=== PATIENT | male | born 1985 | race Caucasian/White ===

== ENCOUNTER 2020-11-15 14:09 | Emergency (ER) | payer BC ==
[2020-11-15] MEDS ORDERED: Alum Hydrox/Mag Hydrox/Simeth 15 ML, Lidocaine 2% 5 ML PO ONE ×4 (14:48→16:41)
[2020-11-15 15:16] LABS: BLOOD UREA NITROGEN,BUN 17 mg/dL (7.0-18.0); CARBON DIOXIDE,CO2 27.8 mmol/L (21.0-32.0); CHLORIDE,CL 102 mmol/L (98-107); GLUCOSE RANDOM 109 mg/dL (74-106); LIPASE 227 U/L (73-393); POTASSIUM,K 3.8 mmol/L (3.5-5.1); SODIUM,NA 139 mmol/L (136-148)
[2020-11-15] MEDS ORDERED: Morphine 4 MG/ML Syringe IVPUSH ONE ×2 (15:56→18:30)
[2020-11-15] MEDS ORDERED: Acetaminophen 500 MG Tab PO ONE (16:40)
[2020-11-15] MEDS ORDERED: Iopamidol 755 MG/ML 500 ML Multipack Bottle IVPUSH ONE (16:40)
--- NOTE | 2020-11-15 17:01 | CT ---
Indication: Epigastric abdominal pain for 1 day. Technique: Contrast enhanced CT abdomen pelvis 100 mL Isovue 370. Comparison: No comparison studies are available Findings: Heart size is normal. No pericardial effusion. Bibasilar atelectasis. Spleen adrenal glands pancreas appears unremarkable. Cholelithiasis. There is a 5 millimeter stone in the mid to distal common bile duct. This is best seen on series 203, image 56 and also series 201 image 54. There is no significant biliary dilatation Fatty appearance of the liver. No abdominal aortic aneurysm. Normal appendix. Symmetric enhancement in both kidneys which appear unremarkable. Diverticulosis. Bowel is unremarkable. Urinary bladder appears unremarkable prostate gland unremarkable. No suspicious bony lesions are seen. Impression: 1. Cholelithiasis. Choledocholithiasis with a 5 millimeter stone in the mid to distal common bile duct. No significant biliary dilatation. 2. Diverticulosis. 3. Fatty liver. Please note that all CT scans at this facility use dose modulation, iterative reconstruction, and/or weight-based dosing when appropriate to reduce radiation dose to as low as reasonably achievable. Dictated by Radha Marshall MD @ Nov 15 2020 4:45PM Signed by Dr. Radha Marshall @ Nov 15 2020 4:59PM
[2020-11-15] MEDS ORDERED: Morphine 4 MG/ML Syringe ONE (18:28)
--- NOTE | 2020-11-15 18:35 | EDM.PDOC ---
<To Elizalde - Last Filed: 11/15/20 20:21> ED HPI GENERAL MEDICAL PROBLEM - General Chief Complaint: Abdominal Pain Stated Complaint: STOMACH PAIN/ULCERS Time Seen by Provider: 11/15/20 14:12 - History of Present Illness INITIAL COMMENTS - FREE TEXT/NARRATIVE: CHIEF COMPLAINT(S): Abdominal pain HISTORY OF PRESENT ILLNESS: This is a 35-year-old man with a reported past medical history of ulcers who comes to the emergency department with a chief complaint of abdominal pain. The patient states that for approximately 1 day now he has been experiencing middle upper quadrant abdominal pain which he describes as a 8 of 10 and sharp which he describes as constant. He denies any radiation of this pain. He states that he has not had any associated nausea or vomiting. He denies any hematemesis, bilious emesis, melena or hematochezia. He states that it feels similar to his prior ulcers. He states that he has not had a complete work-up for it. He states that he lives in [place] and did not want to come to the emergency department however the pain was constant this time. He states that he has gotten a GI cocktail in the past and it helps. He denies any history of pancreatitis or excessive alcohol use. He states that he tried Nexium, Pepcid, and Pepto-Bismol which did improve the pain for approximately 30 minutes and then it came back. He states that he does take Protonix at home but he ran out. He denies any chest pain, shortness of breath, or cough. REVIEW OF SYSTEMS: Constitutional: Denies fever, chills. Eyes: Denies eye pain Ears, Nose, Mouth, & Throat: Denies earache Cardiovascular: Denies chest pain Respiratory: Denies shortness of breath Gastrointestinal: Positive for epigastric abdominal pain. Denies nausea, vomiting, diarrhea, hematochezia, melena, hematemesis Genitourinary: Denies hematuria, dysuria Skin:Denies a rash Neurological: Denies blurred vision Psychiatric: Denies depression PAST MEDICAL HISTORY: As per history of present illness and as reviewed below otherwise noncontributory. SURGICAL HISTORY: As per history of present illness and as reviewed below otherwise noncontributory. SOCIAL HISTORY: As per history of present illness and as reviewed below otherwise noncontributory. FAMILY HISTORY: As per history of present illness and as reviewed below otherwise noncontributory. EXAMINATION OF ORGAN SYSTEMS/BODY AREAS: Constitutional: Blood pressure was 156/116, heart rate 68, respiratory rate 18 with an oxygen saturation 98% on room air. Temperature 35.8. General: Obese gentleman who does not appear to be in acute distress Psychiatric: Appropriate mood and affect. Eyes: No scleral icterus or conjunctival erythema ENMT: Moist mucous membranes. No pharyngeal erythema Cardiovascular: Regular, rate, and rhythm. No gallops, murmurs, or rubs. Bilateral upper extremity pulses symmetric and intact. No peripheral edema. No JVD. Respiratory: Lungs clear to auscultation bilaterally. No wheezes, rales, or rhonchi. Gastrointestinal: Soft, nondistended, tenderness to palpation in the epigastric region. No rebound or guarding. Negative De La Vega's and McBurney's. Normoactive bowel sounds Genitourinary: No suprapubic tenderness Musculoskeletal: Normal range of motion. Skin: No lesions or abrasions. Neurological: Alert, GCS 15 MEDICAL DECISION MAKING AND COURSE IN THE ED WITH INTERPRETATION/REVIEW OF DIAGNOSTIC STUDIES: This is a 35-year-old man with a past medical history of ulcers who comes to the emergency department with epigastric abdominal pain who is mildly hypertensive but otherwise stable. At this time we will treat the patient symptomatically and obtain screening labs including CBC and CMP. We will provide the patient with a GI cocktail. At this time suspicion for gastritis versus peptic ulcer disease. Laboratory: CBC is unremarkable. CMP is unremarkable. Coags are within normal limits. After labs I did reevaluate the patient and he had continued pain. Therefore at this time I discussed with him that I would like to provide him with morphine IV and to obtain a CT abdomen pelvis. He was amenable to this plan. As the nurse was about to administer morphine, the patient states that he was driving and did not want to take morphine. Therefore we ordered Tylenol. The patient did not want Tylenol and wanted an extra GI cocktail. Therefore we have provided the patient with a GI cocktail. The radiological images were viewed by myself along with reading the report from the radiologist. CT abdomen pelvis with IV contrast reveals cholelithiasis, choledocholithiasis with a 5 mm stone in the distal common bile duct. There is no significant biliary dilatation. There is diverticulosis and fatty liver. After imaging, the patient had continued pain however mild. I did discuss with him at this time I want to speak with a surgeon and a GI specialist regarding the CT findings. He was informed of the CT findings. He was amenable to this plan. I contacted Dr. Ramirez who recommended discussion with GI. Therefore I contacted [facility] in [place]. We will obtain a right upper quadrant ultrasound. I contacted [facility] in [place] and spoke with Dr. Auguste who does not have any ERCP capabilities in [place]. Therefore I contacted [facility] in [place] and [facility] in [place] both of which do not have ERCP. Therefore we contacted [facility] in [place] and spoke with Dr. White who is going to discuss the case with GI DISPOSITION: [facility] pending disposition from . At this time ultrasound was pending. CONDITION: Fair PROCEDURES: None FINAL IMPRESSION(S)/DIAGNOSES: 1. Acute abdominal pain secondary to choledocholithiasis and symptomatic cholelithiasis To Elizalde M.D. abdominal Pain Score (Numeric/FACES): 8 - Related Data Allergies Allergy/AdvReac Type Severity Reaction Status Date / Time No Known Allergies Allergy Verified 11/15/20 14:25 Home Meds: Home Meds . [No Known Home Meds] 11/15/20 [History] Past Medical History Gastrointestinal History: Reports: GERD, PUD Musculoskeletal History: Reports: None - Infectious Disease History Infectious Disease History: Reports: Chicken Pox - Past Surgical History GI Surgical History: Reports: None Musculoskeletal Surgical History: Reports: Other (See Below) Other Musculoskeletal Surgeries/Procedures:: L forearm Social & Family History - Family History Family Medical History: No Pertinent Family History - Tobacco Use Tobacco Use Status *Q: Current Every Day Tobacco User Years of Tobacco use: 15 Packs/Tins Daily: 0.5 - Caffeine Use Caffeine Use: Reports: None - Recreational Drug Use Recreational Drug Use: No ED ROS GENERAL - Review of Systems Review Of Systems: See Below ED EXAM, GI/ABD - Physical Exam Exam: See Below Departure - Departure Disposition: Home, Self-Care 01 Clinical Impression: Abdominal pain - Discharge Information Instructions: Abdominal Pain, Adult, [id number] Referrals: PCP,Not In Area [Primary Care Provider] - Forms: ED Department Discharge Additional Instructions: The following information is given to patients seen in the emergency department who are being discharged to home. This information is to outline your options for follow-up care. We provide all patients seen in our emergency department with a follow-up referral. The need for follow-up, as well as the timing and circumstances, are variable depending upon the specifics of your emergency department visit. If you don't have a primary care physician on staff, we will provide you with a referral. We always advise you to contact your personal physician following an emergency department visit to inform them of the circumstance of the visit and for follow-up with them and/or the need for any referrals to a consulting specialist. The emergency department will also refer you to a specialist when appropriate. This referral assures that you have the opportunity for follow-up care with a specialist. All of these measure are taken in an effort to provide you with optimal care, which includes your follow-up. Under all circumstances we always encourage you to contact your private physician who remains a resource for coordinating your care. When calling for follow-up care, please make the office aware that this follow-up is from your recent emergency room visit. If for any reason you are refused follow-up, please contact the [facility] Emergency Department at and asked to speak to the emergency department charge nurse. Please follow up with your primary care physician. If you do not have a primary care physician, see below: [facility] [address] [place] [phone] [facility] [address] [place] [id number] Follow-up with GI or general surgery when she return back to [place]. In the meantime while you are in town for have any increased pain fever chills or difficulty eating or drinking please return to the emergency department. We have also put in after reports for your CT scan and ultrasound of your abdomen and also lab results for your doctor back home to see. Sepsis Event Note (ED) - Evaluation Sepsis Screening Result: No Definite Risk <Alex Van - Last Filed: 11/15/20 21:19> Course - Vital Signs Last Recorded V/S: Last Vital Signs Temp 96.5 F L 11/15/20 14:22 Pulse 86 11/15/20 20:12 Resp 18 11/15/20 20:12 BP 146/92 H 11/15/20 20:12 Pulse Ox 96 11/15/20 20:12 - Orders/Labs/Meds Labs: Laboratory Tests 11/15/20 11/15/20 11/15/20 Range/Units 14:44 14:44 14:44 WBC 10.34 (4.0-11.0) K/uL RBC 5.84 (4.50-5.90) M/uL Hgb 16.5 (13.0-17.0) g/dL Hct 49.4 (38.0-50.0) % MCV 84.6 (80.0-98.0) fL MCH 28.3 (27.0-32.0) pg MCHC 33.4 (31.0-37.0) g/dL RDW Std Deviation 43.4 (28.0-62.0) fl RDW Coeff of Radha 14 (11.0-15.0) % Plt Count 280 (150-400) K/uL MPV 10.90 (7.40-12.00) fL Neut % (Auto) 66.0 (48.0-80.0) % Lymph % (Auto) 25.7 (16.0-40.0) % [place] % (Auto) 5.9 (0.0-15.0) % Eos % (Auto) 2.1 (0.0-7.0) % Baso % (Auto) 0.3 (0.0-1.5) % Neut # (Auto) 6.8 H (1.4-5.7) K/uL Lymph # (Auto) 2.7 H (0.6-2.4) K/uL [place] # (Auto) 0.6 (0.0-0.8) K/uL Eos # (Auto) 0.2 (0.0-0.7) K/uL Baso # (Auto) 0.0 (0.0-0.1) K/uL Nucleated RBC % 0.0 /100WBC Nucleated RBCs # 0 K/uL INR 1.00 Sodium 139 (136-148) mmol/L Potassium 3.8 (3.5-5.1) mmol/L Chloride 102 (98-107) mmol/L Carbon Dioxide 27.8 (21.0-32.0) mmol/L BUN 17 (7.0-18.0) mg/dL Creatinine 1.3 (0.8-1.3) mg/dL Est Cr Clr Drug Dosing 92.99 mL/min Estimated GFR (MDRD) > 60.0 ml/min Glucose 109 H (74-106) mg/dL Calcium 9.1 (8.5-10.1) mg/dL Total Bilirubin 0.3 (0.2-1.0) mg/dL AST 17 (15-37) IU/L ALT 46 (14-63) IU/L Alkaline Phosphatase 68 (46-116) U/L Total Protein 7.9 (6.4-8.2) g/dL Albumin 4.0 (3.4-5.0) g/dL Globulin 3.9 (2.6-4.0) g/dL Albumin/Globulin Ratio 1.0 (0.9-1.6) Lipase 227 (73-393) U/L Influenza Type A RNA (NEGATIVE) Influenza Type B RNA (NEGATIVE) SARS-CoV-2 RNA (DEANGELO) (NEGATIVE) 11/15/20 Range/Units 18:55 WBC (4.0-11.0) K/uL RBC (4.50-5.90) M/uL Hgb (13.0-17.0) g/dL Hct (38.0-50.0) % MCV (80.0-98.0) fL MCH (27.0-32.0) pg MCHC (31.0-37.0) g/dL RDW Std Deviation (28.0-62.0) fl RDW Coeff of Radha (11.0-15.0) % Plt Count (150-400) K/uL MPV (7.40-12.00) fL Neut % (Auto) (48.0-80.0) % Lymph % (Auto) (16.0-40.0) % [place] % (Auto) (0.0-15.0) % Eos % (Auto) (0.0-7.0) % Baso % (Auto) (0.0-1.5) % Neut # (Auto) (1.4-5.7) K/uL Lymph # (Auto) (0.6-2.4) K/uL [place] # (Auto) (0.0-0.8) K/uL Eos # (Auto) (0.0-0.7) K/uL Baso # (Auto) (0.0-0.1) K/uL Nucleated RBC % /100WBC Nucleated RBCs # K/uL INR Sodium (136-148) mmol/L Potassium (3.5-5.1) mmol/L Chloride (98-107) mmol/L Carbon Dioxide (21.0-32.0) mmol/L BUN (7.0-18.0) mg/dL Creatinine (0.8-1.3) mg/dL Est Cr Clr Drug Dosing mL/min Estimated GFR (MDRD) ml/min Glucose (74-106) mg/dL Calcium (8.5-10.1) mg/dL Total Bilirubin (0.2-1.0) mg/dL AST (15-37) IU/L ALT (14-63) IU/L Alkaline Phosphatase (46-116) U/L Total Protein (6.4-8.2) g/dL Albumin (3.4-5.0) g/dL Globulin (2.6-4.0) g/dL Albumin/Globulin Ratio (0.9-1.6) Lipase (73-393) U/L Influenza Type A RNA NEGATIVE (NEGATIVE) Influenza Type B RNA NEGATIVE (NEGATIVE) SARS-CoV-2 RNA (DEANGELO) NEGATIVE (NEGATIVE) Meds: Medications Discontinued Medications Generic Name Dose Route Start Last Admin Trade Name Freq PRN Reason Stop Dose Admin Acetaminophen 1,000 mg 11/15/20 16:40 11/15/20 17:10 Tylenol Extra Strength PO 11/15/20 16:41 Not Given ONETIME ONE Al Hydroxide/Mg Hydroxide 15 0 ml 11/15/20 14:48 11/15/20 15:06 ml/ Lidocaine HCl 5 ml PO 11/15/20 14:49 1 each ONETIME ONE Administration Al Hydroxide/Mg Hydroxide 15 0 ml 11/15/20 16:41 11/15/20 17:10 ml/ Lidocaine HCl 5 ml PO 11/15/20 16:42 1 each ONETIME ONE Administration Iopamidol 100 ml 11/15/20 16:40 11/15/20 16:41 Isovue Multipack-370 (76%) IVPUSH 11/15/20 16:41 100 ml ONETIME ONE Administration Morphine Sulfate 4 mg 11/15/20 15:56 11/15/20 16:39 Morphine IVPUSH 11/15/20 15:57 Not Given ONETIME ONE Morphine Sulfate 4 mg 11/15/20 18:30 11/15/20 18:32 Morphine IVPUSH 11/15/20 18:31 4 mg ONETIME ONE Administration Morphine Sulfate Confirm 11/15/20 18:28 11/15/20 18:41 Morphine Administered 11/15/20 18:29 Not Given Dose 4 mg .[address]TE .[facility] - Re-Assessments/Exams Free Text/Narrative Re-Assessment/Exam: 11/15/20 21:15 Patient was signed out to me the previous attending. Patient presented today for abdominal pain. Currently patient has no abdominal pain feels like symptoms have resolved. We spoke to the GI doctor Dr. Myers at [facility] about patient's case and after reviewing images and labs she believes that the stone may have been closer to the cystic duct and did not need an ERCP at this time and more so would have benefited from a cholecystectomy. We did call our general surgeon Dr. Ramirez and reviewed the case with him. The ultrasound that was done after the CAT scan did not show any stones in the gallbladder or cystic duct patient no dilatation. Patient LFTs are all within normal range and patient remains pain-free. Patient could have possibly passed a stone or the CT scan today showed some artifact. We believe patient is stable enough to go home. Patient will be given follow-up for Tuesday here however he lives in [place] and prefer to follow-up there. Patient fully understands and is okay with being discharged home again patient labs are stable vital signs are stable he looks well and is also pain-free. Departure - Departure Time of Disposition: 21:18 Condition: Good - Discharge Information *PRESCRIPTION DRUG MONITORING PROGRAM REVIEWED*: Not Applicable *COPY OF PRESCRIPTION DRUG MONITORING REPORT IN PATIENT CRISSY: Not Applicable Sepsis Event Note (ED) - Focused Exam Vital Signs: Vital Signs Temp Pulse Resp BP Pulse Ox 11/15/20 20:12 86 18 146/92 H 96 11/15/20 18:50 84 18 166/101 H 97 11/15/20 17:14 70 16 180/109 H 97 12/26/20 16:09 72 16 168/107 H 98 11/15/20 15:08 80 16 170/100 H 97 11/15/20 14:22 96.5 F L 68 18 156/116 H 98
[2020-11-15 19:35] LABS: CORONAVIRUS COVID-19 NAA NEGATIVE (NEGATIVE); INFLUENZA A NAA NEGATIVE (NEGATIVE); INFLUENZA B NAA NEGATIVE (NEGATIVE)
--- NOTE | 2020-11-15 20:46 | US ---
INDICATION: Choledocholithiasis. TECHNIQUE: Right upper quadrant ultrasound. COMPARISON: Abdomen pelvis CT of the same day. FINDINGS: Liver difficult to visualize due to body habitus but it appears fatty. No intra or extrahepatic bile duct dilation. Common bile duct measures 6 mm in diameter. Common bile duct stone seen on the CT is poorly visualized on this examination. No gallstones identified on this exam. Normal gallbladder wall thickness. No pericholecystic fluid. Title I Coordinator reports a positive sonographic De La Vega`s sign. Pancreas poorly visualized. Right kidney appears normal. Aorta and IVC unremarkable. IMPRESSION: 1. Today`s CT demonstrates calcified stones in the gallbladder. These are not visualized on this ultrasound. Likewise the common bile duct stone is poorly if at all seen. 2. No biliary dilation. 3. Title I Coordinator reports a positive sonographic De La Vega`s sign. Correlation for acute cholecystitis recommended. Dictated by Venkatesh Enriquez MD @ Nov 15 2020 8:39PM Signed by Dr. Venkatesh Enriquez @ Nov 15 2020 8:44PM
== END 2020-11-15 21:30 | disposition home or self-care (01) ==
LOC: MW.ED 14:09
DX: K80.70 Calculus of gallbladder and bile duct without cholecystitis without obstruction (principal); F17.210 Nicotine dependence, cigarettes, uncomplicated; Z20.828 Contact with and (suspected) exposure to other viral communicable diseases
CPT/HCPCS: 0240U; 36415; 74177; 76705; 80053; 83690; 85025; 85610; 96374; 99284; A9270; J2270; Q9967; 99283